=== PATIENT | male | born 1990 | race Caucasian/White ===

== ENCOUNTER 2018-10-09 09:03 | Emergency (ER) | payer MEDICAID ==
[~2018-10-09] VITALS: Ht 170.2 cm; Wt 85.6 kg
[~2018-10-09 09:03] MED LIST: ACET500C5 PO; IBUP-1542 PO; [UNRECOGNIZED DRUG - CODE] TP
[2018-10-09 09:05] VITALS: Ht 170.2 cm; Wt 85.6 kg
[2018-10-09] MEDS ORDERED: LIDOCAINE 1% (MDV) 20 ML INJ SC ONE (10:00)
--- NOTE | 2018-10-09 10:29 | ERD ---
ER Documentation Chief Complaint Chief Complaint swelling buttocks area x2 days, possible abscess HPI 28-year-old male presented to ED for swelling and pain to his buttocks x2 days. Patient states this is never happened to him before he states the pain is a 9 out of 10. Patient states the pain is consistent and does not go away. Patient is afebrile denies back pain fever chills or night sweats. Patient states he has not seen a provider for this yet. Patient states he has no past medical history he is not allergic to anything he is currently not taking any medica tions. ROS All systems reviewed and are negative except as per history of present illness. Medications Home Meds Active Scripts Acetaminophen* (Tylophen*) 500 Mg Capsule, 1 CAP PO Q6H PRN for PAIN AND OR ELEVATED TEMP, #20 CAP Prov:BRONSON HUI PA-C 10/09/18 Allergies Allergies: Coded Allergies: No Known Allergy (Unverified , 10/09/18) PMhx/Soc Medical and Surgical Hx: pt denies Medical Hx, pt denies Surgical Hx Hx Alcohol Use: No Hx Tobacco Use: No Smoking Status: Never smoker FmHx Family History: No diabetes, No coronary disease, No other Physical Exam Vitals Vital Signs Date Temp Pulse Resp B/P (MAP) Pulse Ox O2 O2 Flow FiO2 Time Delivery Rate 10/09/18 99.5 74 18 125/58 98 09:05 (80) Physical Exam GENERAL: Moderate distress CHEST: Clear to auscultation bilaterally. There are no rales, wheezes or rhonchi. HEART: Regular rate and rhythm. No murmurs, clicks, rubs or gallops. SKIN: 1 cm intact fluctuant mass located left medial buttocks region. Results 24 hrs Current Medications Medications Dose Sig/Yoel Start Time Status Last (Trade) Ordered Route PRN Stop Time Admin Dose Reason Admin Lidocaine 20 ml ONCE ONCE 10/09/18 DC (Xylocaine SC 10:00 1% (Mdv) 20 10/09/18 10:01 ml) Procedures/MDM ED course: The patient was stable throughout the ED course. The patient and/or family informed of laboratory and diagnostic imaging results throughout the ED course. Procedures: Abscess Incision and Drainage with irrigation by me: Location: Left medial buttocks Anesthesia: Local 1% Lidocaine Technique: Irrigated. Disrupted loculations w/ instrumentation Packing: None Complications: Neurovascularly intact post procedure 48 hour wound check. Scar minimization instructions given. ED Ultrasound: Abscess localized by me using concurrent ultrasound guidance and assessment of the anatomy. Real time image archived in the medical record confirms anatomy. Medications given in ER: Lidocaine 1% Patient tolerated medication well with no adverse reactions. Patient reported improvement in pain. Medical decision makin-year-old male presented to ED for abscess in the buttocks region. Patient has been afebrile and denies fever chills night sweats. Physical exam revealed proximally 1 cm abscess located medial side of the left buttocks. The area was was cleansed and sterilized region was anesthetized with 1% lidocaine and the abscess was drained without difficulty. The abscess drained yellowish pus with some blood. The area was cleansed and there was no open pocket that needed to be packed. The area was cleaned and sterile gauze was placed over the wound. At this time I do not think the patient needs antibiotics. The patient reports improvement in pain post procedure. At this time I have low suspicion for cellulitis, MRSA infection, external hemorrhoids. Advised patient needs come back in 2 days for wound check. I counseled the patient on wound care. Advised patient if symptoms worsen return to ER immediately. All questions were answered upon discharge I advised the patient that he needs to follow-up with his primary care provider regarding this visit this week. Patient is agreement treatment plan Prescription for home: Acetaminophen I have discussed with the patient proper use and common side effects to expert with the medication . I advised the patient/family to speak with the pharmacist dispensing the medication to be advised of any potential drug interactions with other medication or supplements they may be taking. Discharge: At this time, patient is stable for discharge and outpatient management. I have instructed the patient to follow-up with his\her primary care physician in 1 to 2 days. I have discussed with the patient the possibility of needing to see a specialist for further work-up and imaging studies if symptoms persist. I have instructed the patient to promptly return to the ER for any new or worsening symptoms including increased pain, fever, nausea, vomiting, weakness or LOC. The patient and\or family expressed understanding of and agreement with this plan. All questions were answered. Home care instructions were provided. Disclaimer: Inadvertent spelling and grammatical errors are likely due to EHR\dictation software use and do not reflect on the overall quality of patient care. Also, please note that the electronic time recorded on the note does not necessarily reflect the actual time of the patient encounter. Departure Diagnosis: Primary Impression: Perianal abscess Condition: Stable Patient Instructions: Wound Care, Candice-Anal Abscess, I And D Referrals: [facility] YOU HAVE RECEIVED A MEDICAL SCREENING EXAM AND THE RESULTS INDICATE THAT YOU DO NOT HAVE A CONDITION THAT REQUIRES URGENT TREATMENT IN THE EMERGENCY DEPARTMENT. FURTHER EVALUATION AND TREATMENT OF YOUR CONDITION CAN WAIT UNTIL YOU ARE SEEN IN YOUR DOCTORS OFFICE WITHIN THE NEXT 1-2 DAYS. IT IS YOUR RESPONSIBILITY TO MAKE AN APPOINTMENT FOR FOLOW-UP CARE. IF YOU HAVE A PRIMARY DOCTOR --you should call your primary doctor and schedule an appointment IF YOU DO NOT HAVE A PRIMARY DOCTOR YOU CAN CALL OUR PHYSICIAN REFERRAL HOTLINE AT IF YOU CAN NOT AFFORD TO SEE A PHYSICIAN YOU CAN CHOSE FROM THE FOLLOWING [facility] [address] [facility]. [facility] [address] [facility] [facility] [address] [facility] [address] [facility] [address] [facility] [facility] [address] [facility]. [facility] YOU HAVE RECEIVED A MEDICAL SCREENING EXAM AND THE RESULTS INDICATE THAT YOU DO NOT HAVE A CONDITION THAT REQUIRES URGENT TREATMENT IN THE EMERGENCY DEPARTMENT. FURTHER EVALUATION AND TREATMENT OF YOUR CONDITION CAN WAIT UNTIL YOU ARE SEEN IN YOUR DOCTORS OFFICE WITHIN THE NEXT 1-2 DAYS. IT IS YOUR RESPONSIBILITY TO MAKE AN APPOINTMENT FOR FOLOW-UP CARE. IF YOU HAVE A PRIMARY DOCTOR --you should call your primary doctor and schedule and appointment IF YOU DO NOT HAVE A PRIMARY DOCTOR YOU CAN CALL OUR PHYSICIAN REFERRAL HOTLINE AT . IF YOU CAN NOT AFFORD TO SEE A PHYSICIAN YOU CAN CHOSE FROM THE FOLLOWING [facility] INSTITUTIONS: [facility] [address] [place] [address] [facility] [address] [place] [address] [address] Additional Instructions: Call your primary care doctor TOMORROW for an appointment during the next 1-2 days.See the doctor sooner or return here if your condition worsens before your appointment time. Follow up in 2 days in your clinic for wound check. BRONSON HUI PA-C Oct 09, 2018 10:29
[2018-10-09 10:59] VITALS: BP 128/76; PULSE 78; RESP 18
== END 2018-10-09 10:59 | disposition home or self-care (01) ==
LOC: FTE 09:03
DX: K61.0 Anal abscess (principal)
CPT/HCPCS: 46050; Z7502; Z7610

== ENCOUNTER 2018-10-11 09:51 | Emergency (ER) | payer MEDICAID ==
[~2018-10-11] VITALS: Ht 170.2 cm; Wt 86.5 kg
[2018-10-11 09:55] VITALS: BP 117/59; PULSE 63; RESP 17; Ht 170.2 cm; Wt 86.5 kg
== END 2018-10-11 12:10 | disposition home or self-care (01) ==
LOC: FTE 09:51
DX: K61.1 Rectal abscess (principal)
CPT/HCPCS: 99283